=== PATIENT | female | born 1995 | race Caucasian/White ===

== ENCOUNTER 2019-03-26 15:11 | Emergency (ER) | payer SELFPAY, OTHER | END 2019-03-26 18:36 | disposition left against medical advice (07) | LOC: FTE 15:11 | DX: Z53.21 Procedure and treatment not carried out due to patient leaving prior to being seen by health care provider (principal) ==

== ENCOUNTER 2019-07-28 11:39 | Emergency (ER) | payer OTHER | END 2019-07-28 13:18 | disposition home or self-care (01) | LOC: E/R 11:39 | DX: R00.2 Palpitations (principal) | CPT/HCPCS: 93005; 99283-25 ==